=== PATIENT | male | born 1965 | race American Indian/Alaskan Native ===

== ENCOUNTER 2017-01-06 07:27 | Outpatient (CLI) | payer MEDICARE, MEDICAID ==
--- NOTE | 2017-01-07 09:38 | Fluoroscopy Report ---
Modified barium swallow: History: Dysphagia. Findings: There is no anatomic obstruction noted to the transit of thin and thick liquid and semisolid and solid food through cervical esophagus. There was penetration/aspiration noted. Additional information was provided by speech therapist. Impression: Findings as detailed above.
== END 2017-01-06 07:28 | disposition home or self-care (01) ==
LOC: PT 07:27
PROVIDERS: ATTEND Internal Medicine
DX: R13.12 Dysphagia, oropharyngeal phase (principal)
CPT/HCPCS: 74230; 92611; G8996; G8997

== ENCOUNTER 2017-09-20 21:48 | Emergency (ER) | payer MEDICARE ==
[2017-09-20] MEDS ORDERED: HALDOL ONE (22:10)
[2017-09-20] MEDS ORDERED: ATIVAN IV ONE (22:48)
[2017-09-20] MEDS ORDERED: BENADRYL IV ONE (22:56)
[2017-09-20 23:24] LABS: Basophils % (Auto) 0.3 % (0.0-1.8); Eosinophils # (Auto) 0.1 K/mm3 (0.0-0.4); Eosinophils % (Auto) 0.9 % (0.0-4.3); Hematocrit 37.1 % (35.5-45.6); Hemoglobin 12.2 gm/dl (11.8-15.2); Lymphocytes # (Auto) 0.7 K/mm3 (1.2-5.4); Lymphocytes % (Auto) 8.3 % (13.4-35.0); Mean Corpuscular HGB Conc 33 % (32-34); Mean Corpuscular Hemoglobin 32 pg (28-32); Mean Corpuscular Volume 98 fl (84-94); Monocytes # (Auto) 0.6 K/mm3 (0.0-0.8); Platelet Count 141 K/mm3 (140-440); Red Cell Distribution Width 12.7 % (13.2-15.2)
[2017-09-20] MEDS ORDERED: NACL 0.9% 500 ML 500 ML IV ONE (23:33)
[2017-09-20 23:45] LABS: BUN/Creatinine Ratio 17; Blood Urea Nitrogen 12 mg/dL (9-20); Calcium 8.9 mg/dL (8.4-10.2); Hemolysis Index 6
[2017-09-21] MEDS ORDERED: HALDOL IM ONE
--- NOTE | 2017-09-21 00:02 | Emergency Department Report ---
HPI - General Chief Complaint: Seizure Time Seen by Provider: 09/20/17 22:44 - HPI HPI: The patient is a 52-year-old male With a history of Parkinson disease, who presents for evaluation of tremor. Per his , the patient experienced an episode of severe tremor this evening, approximately 2-3 hours prior to arrival , constant, lasting for one to 2 hours. She denies of the patient exhibited any other symptoms. She shares that the patient has experienced many episodes of tremors in the past, and thinks that his Parkinson medications are not strong enough. She denies that the patient has experienced fever, head injury, seizure-like activity, change from baseline mental status, change in baseline activity, vomiting, diarrhea, rash. ED Past Medical Hx - Past Medical History Previous Medical History?: Yes Hx Congestive Heart Failure: No Hx Diabetes: No Hx Asthma: No Hx COPD: No Additional medical history: heart murmur, parkinsons - Surgical History Past Surgical History?: No - Social History Smoking Status: Never Smoker Substance Use Type: None - Medications Home Medications: Home Medications Medication Instructions Recorded Confirmed Last Taken Type Carbidopa/Levodopa [Rytary ER 2 each PO Q3HR 02/19/17 02/19/17 02/17/17 History 23.75 mg-95 mg Cap] 25-250mg clonazePAM [Klonopin] 1 mg PO QDAY 02/19/17 02/19/17 02/17/17 History Benztropine [Cogentin] 1 mg PO BID #30 tab 09/21/17 Unknown Rx ED Review of Systems ROS: Stated complaint: MUSCLE PAIN Other details as noted in HPI Comment: Unobtainable due to pts medical conditions (non-communicative) Physical Exam - Physical Exam Vital Signs: Vital Signs 09/20/17 09/20/17 09/20/17 22:22 22:29 22:31 Temperature 98.6 F Pulse Rate 120 H 97 H Respiratory 12 20 16 Rate Blood Pressure 124/94 O2 Sat by Pulse 96 99 96 Oximetry 09/20/17 09/20/17 09/20/17 22:45 23:00 23:15 Temperature Pulse Rate 84 90 89 Respiratory 12 18 12 Rate Blood Pressure 90/52 99/53 98/53 O2 Sat by Pulse 95 96 97 Oximetry 09/20/17 09/20/17 23:30 23:45 Temperature Pulse Rate 83 80 Respiratory 14 12 Rate Blood Pressure 94/55 98/56 O2 Sat by Pulse 96 98 Oximetry Physical Exam: General: well-nourished, well-developed, no acute distress Head: Normocephalic, atraumatic Eyes: normal sclera ENT: Mucous membranes are pale and dry Neck: trachea midline, neck supple, No neck stiffness, no cervical adenopathy Respiratory: Breath sounds equal bilaterally, no wheezing, rales, or rhonchi Cardio: S1 and S2 present, no murmurs, rubs, gallops, capillary refill is delayed Abdomen: Normoactive bowel sounds, soft abdomen, no rigidity, no guarding or rebound tenderness Musc: No pitting edema Skin: No rash Neuro: Alert, drowsy, intention tremor of the right hand present, no resting tremor, reflexes 2+ symmetric on DTR testing of the measures was bilaterally, Babinski is downgoing Psych: Normal affect ED Course Vital Signs 09/20/17 09/20/17 09/20/17 22:22 22:29 22:31 Temperature 98.6 F Pulse Rate 120 H 97 H Respiratory 12 20 16 Rate Blood Pressure 124/94 O2 Sat by Pulse 96 99 96 Oximetry 09/20/17 09/20/17 09/20/17 22:45 23:00 23:15 Temperature Pulse Rate 84 90 89 Respiratory 12 18 12 Rate Blood Pressure 90/52 99/53 98/53 O2 Sat by Pulse 95 96 97 Oximetry 09/20/17 09/20/17 23:30 23:45 Temperature Pulse Rate 83 80 Respiratory 14 12 Rate Blood Pressure 94/55 98/56 O2 Sat by Pulse 96 98 Oximetry ED Medical Decision Making - Lab Data Result diagrams: 09/20/17 23:02 09/20/17 23:02 - Medical Decision Making The patient was seen and examined by myself. The patient is placed on a manager monitoring and continuous pulse ox. On initial evaluation, the patient was found to be in no distress. Evaluation orders were placed. No signs of seizure. Patient exhibits transient tremor of the right arm for seconds. The patient is given IV Benadryl for his tremor like activity. The patient is given normal saline fluid bolus for treatment of his dehydration. Lab results are unremarkable. The patient was monitored in the emergency department for greater than 2 hours without any further tremor like activity. As the patient' s presenting complaint of tremor is chronic for the patient, and as the patient has normal vital signs, the patient is stable for discharge with outpatient follow-up. The patient is given follow-up and return instructions. The patient expressed understanding and agreed with the plan. The patient is discharged in stable condition. Critical care attestation.: If time is entered above; I have spent that time in minutes in the direct care of this critically ill patient, excluding procedure time. ED Disposition Clinical Impression: Tremor due to disorder of HAND [employer], Dehydration Parkinsonism Qualifiers: Parkinsonism type: Parkinson's disease Qualified Code(s): G20 - Parkinson's disease Disposition: - TO HOME OR SELFCARE Is pt being admited?: No Does the pt Need Aspirin: No Condition: Stable Instructions: Parkinson's Disease (ED) Prescriptions: Benztropine [Cogentin] 1 mg PO BID #30 tab Referrals: MISTY DOUGLASS MD [Referring] - 3-5 Days EBENEZER NIETO MD [Staff Physician] - 3-5 Days Time of Disposition: 00:05
[2017-09-21 02:14] VITALS: BP 122/78
== END 2017-09-21 02:15 | disposition home or self-care (01) ==
LOC: ED 21:48
DX: R25.1 Tremor, unspecified (principal); E86.0 Dehydration; G20 Parkinson's disease
CPT/HCPCS: 36415; 80048; 85025; 96372; 96374; 99284; J1200; J1630; J7040

== ENCOUNTER 2017-12-06 13:08 | Emergency (ER) | payer MEDICARE ==
[2017-12-06 13:55] LABS: Hematocrit 39.4 % (35.5-45.6); Hemoglobin 13.4 gm/dl (11.8-15.2); Mean Corpuscular HGB Conc 34 % (32-34); Mean Corpuscular Hemoglobin 33 pg (28-32); Mean Corpuscular Volume 97 fl (84-94); Platelet Count 200 K/mm3 (140-440); Red Blood Count 4.04 M/mm3 (3.65-5.03); Red Cell Distribution Width 12.4 % (13.2-15.2)
[2017-12-06 14:15] LABS: BUN/Creatinine Ratio 16; Blood Urea Nitrogen 11 mg/dL (9-20); Calcium 9.2 mg/dL (8.4-10.2); Hemolysis Index 10
--- NOTE | 2017-12-06 14:31 | XRay Report ---
ROUTINE CHEST, TWO VIEWS: HISTORY: Productive cough, fever. The trachea, heart, mediastinal contour, lung petty and bony thorax are unremarkable. IMPRESSION: Unremarkable chest x-ray.
--- NOTE | 2017-12-06 14:32 | XRay Report ---
RIGHT WRIST, 2 VIEWS History: Pain, swelling Findings: Mild soft tissue swelling is noted. Borderline to mild osteopenia is suspected. No acute osseous injury or joint pathology is appreciated. Impression: Soft tissue swelling. No acute bony injury is appreciated.
[2017-12-06 18:43] LABS: Bilirubin,Urine NEG (Negative); Blood,Urine SM (Negative); Color,Urine Yellow (Yellow); Mucus,Urine FEW /HPF; Protein,Urine <15 mg/dL mg/dL (Negative); WBC,Urine < 1.0 /HPF (0.0-6.0)
[2017-12-06 21:08] VITALS: BP 128/88
--- NOTE | 2017-12-06 21:48 | Emergency Department Report ---
HPI - General Chief Complaint: Upper Respiratory Infection Time Seen by Provider: 12/06/17 21:30 - HPI HPI: Room 30 The patient is a 52-year-old male presenting with a chief complaint of chest pain. Family states patient is complaining of constant chest tightness for the past 3 days. Patient denies shortness of breath, nausea/vomiting but admits to diaphoresis. Patient has been afebrile. Family states patient has had a nonproductive cough for one week. The patient also been complaining of right wrist pain for one week. Family states the patient's tremors from his Parkinson 's causes him to shake his right hand at times and family is uncertain if he may have injured his wrist during these tremors. The patient currently denies chest pain. Family is uncertain patient is a stress test but states that he has never had a cardiac catheterization Location: [See above] Duration: [See above] Quality: Tightness Severity: Currently 0/10 Modifying factors: [see above] Context: [see above] Mode of transportation: [not driving] ED Past Medical Hx - Past Medical History Additional medical history: heart murmur, parkinsons - Surgical History Past Surgical History?: No - Family History Family history: no significant - Social History Smoking Status: Never Smoker Substance Use Type: None - Medications Home Medications: Home Medications Medication Instructions Recorded Confirmed Last Taken Type Carbidopa/Levodopa [Rytary ER 1 each PO TID 02/19/17 12/06/17 02/17/17 History 23.75 mg-95 mg Cap] 25-250mg guaiFENesin [Guaifenesin] 200 mg PO TID #200 liquid 12/06/17 Unknown Rx ED Review of Systems ROS: Stated complaint: CHEST PAIN Other details as noted in HPI Constitutional: diaphoresis Eyes: denies: eye pain ENT: denies: throat pain Respiratory: denies: shortness of breath Cardiovascular: chest pain Endocrine: no symptoms reported Gastrointestinal: denies: nausea, vomiting Genitourinary: denies: dysuria Musculoskeletal: arthralgia, myalgia Neurological: denies: headache Physical Exam - Physical Exam Vital Signs: Vital Signs 12/06/17 12/06/17 12/06/17 13:36 20:17 21:07 Temperature 99 F 97.9 F 98.8 F Pulse Rate 103 H 92 H 91 H Respiratory 18 18 18 Rate Blood Pressure 136/87 Blood Pressure 128/88 [Left] Blood Pressure 126/77 [Right] O2 Sat by Pulse 98 100 99 Oximetry Physical Exam: GENERAL: The patient is well-developed well-nourished male lying on stretcher not appearing to be in acute distress. [] HEENT: Normocephalic. Atraumatic. Extraocular motions are intact. Patient has moist mucous membranes. NECK: Supple. Trachea midline CHEST/LUNGS: Clear to auscultation. There is no respiratory distress noted. HEART/CARDIOVASCULAR: Regular. There is no tachycardia. There is no gallop rub or murmur. ABDOMEN: Abdomen is soft, nontender. Patient has normal bowel sounds. There is no abdominal distention. SKIN: There is no rash. There is no edema. There is no diaphoresis. NEURO: The patient is awake, alert, and oriented. The patient is cooperative. MUSCULOSKELETAL: There is soreness to the right wrist but no obvious deformity. There is no evidence of acute injury. ED Course Vital Signs 12/06/17 12/06/17 12/06/17 13:36 20:17 21:07 Temperature 99 F 97.9 F 98.8 F Pulse Rate 103 H 92 H 91 H Respiratory 18 18 18 Rate Blood Pressure 136/87 Blood Pressure 128/88 [Left] Blood Pressure 126/77 [Right] O2 Sat by Pulse 98 100 99 Oximetry ED Medical Decision Making - Lab Data Result diagrams: 12/06/17 13:41 12/06/17 13:37 Laboratory Tests 12/06/17 12/06/17 12/06/17 13:37 13:41 17:56 WBC 4.1 L RBC 4.04 Hgb 13.4 Hct 39.4 MCV 97 H MCH 33 H MCHC 34 RDW 12.4 L Plt Count 200 Sodium 138 Potassium 3.8 Chloride 99.1 Carbon Dioxide 24 Anion Gap 19 BUN 11 Creatinine 0.7 L Estimated GFR > 60 BUN/Creatinine Ratio 16 Glucose 111 H Calcium 9.2 Troponin T < 0.010 Urine Color Yellow Urine Turbidity Clear Urine pH 6.0 Ur Specific [place] 1.017 Urine Protein <15 mg/dl Urine Glucose (UA) Neg Urine Ketones Tr Urine Blood Sm Urine Nitrite Neg Urine Bilirubin Neg Urine Urobilinogen 2.0 Ur Leukocyte Esterase Neg Urine WBC (Auto) < 1.0 Urine RBC (Auto) 3.0 Urine Mucus Few - EKG Data -: EKG Interpreted by Me EKG shows normal: sinus rhythm Rate: normal - EKG Data When compared to previous EKG there are: previous EKG unavailable Interpretation: nonspecific ST-T wave jasbir (T-wave inversion in lead aVL, V2) - Radiology Data Radiology results: report reviewed (chest x-ray, right wrist x-ray), image reviewed (chest x-ray, right wrist x-ray) interpreted by me: Chest x-ray-no definite focal infiltrates, no pneumothorax Right wrist x-ray-no acute fracture seen [address] [address] XRay Report Signed Patient: PATTI COOPER JR MR#: [id number] : 1965 Acct:[id number] Age/Sex: 52 / M ADM Date: 12/06/17 Loc: ED Attending Dr: Ordering Physician: ANUP RIOS MD Date of Service: 12/06/17 Procedure(s): XR chest routine 2V Accession Number(s): [id number] cc: ANUP RIOS MD Fluoro Time In Minutes: ROUTINE CHEST, TWO VIEWS: HISTORY: Productive cough, fever. The trachea, heart, mediastinal contour, lung petty and bony thorax are unremarkable. IMPRESSION: Unremarkable chest x-ray. Transcribed By: TTR Dictated By: TYLER MOSCOSO JR, MD Electronically Authenticated By: TYLER MOSCOSO JR, MD Signed Date/Time: 12/06/17 1430 DD/ 1430 TD/TT: 12/06/[address] [address] XRay Report Signed Patient: PATTI COOPER JR MR#: [id number] : 1965 Acct:[id number] Age/Sex: 52 / M ADM Date: 12/06/17 Loc: ED Attending Dr: Ordering Physician: ANUP RIOS MD Date of Service: 12/06/17 Procedure(s): XR wrist 2V RT Accession Number(s): [id number] cc: ANUP RIOS MD Fluoro Time In Minutes: RIGHT WRIST, 2 VIEWS History: Pain, swelling Findings: Mild soft tissue swelling is noted. Borderline to mild osteopenia is suspected. No acute osseous injury or joint pathology is appreciated. Impression: Soft tissue swelling. No acute bony injury is appreciated. Transcribed By: TTR Dictated By: TYLER MOSCOSO JR, MD Electronically Authenticated By: TYLER MOSCOSO JR, MD Signed Date/Time: 12/06/171430 DD/ 30 TD/TT: 12/06/171430 - Medical Decision Making I discussed with the patient and spouse at length my concern for the patient's chest pain. I explained our recommended the patient be admitted to the hospital as ACS could not be excluded. Family verbalized understanding of increased morbidity and/or mortality but still wishes to leave the hospital AGAINST MEDICAL ADVICE. - Differential Diagnosis ACS, pericarditis, GERD, bronchitis, wrist fracture Critical care attestation.: If time is entered above; I have spent that time in minutes in the direct care of this critically ill patient, excluding procedure time. ED Disposition Clinical Impression: Chest pain, Left wrist pain Disposition: LEFT AGAINST MED ADVICE Is pt being admited?: No Does the pt Need Aspirin: No Condition: Undetermined Instructions: Chest Pain (ED) Prescriptions: guaiFENesin [Guaifenesin] 200 mg PO TID #200 liquid Referrals: EBENEZER KELLY MD [Primary Care Provider] - 3-5 Days Time of Disposition: 21:52
== END 2017-12-06 21:55 | disposition left against medical advice (07) ==
LOC: ED 13:08
DX: R07.89 Other chest pain (principal); M25.531 Pain in right wrist
CPT/HCPCS: 36415; 71046; 80048; 81001; 84484; 85027; 93005; 93010

== ENCOUNTER 2018-01-19 14:55 | Outpatient (CLI) | payer MEDICARE ==
--- NOTE | 2018-02-02 09:06 | Magnetic Resonance Report ---
MR scan of the cranium was performed without contrast. Pulse sequences included: 1. T1 weighted sagittal and axial images without contrast 2. T2 weighted axial and coronal images 3. FLAIR axial images 4. Diffusion-weighted axial images 5. Apparent diffusion coefficient images Views of the posterior fossa showed a normal craniocervical junction. Cerebellar pontine angles were normal with normal seventh-eighth nerve complexes. Brainstem and cerebellum were normal. The ventricular system showed no dilatation or distortion. Images of the hemispheres showed no areas of increased or decreased signal. Flow voids in the lime of [place], orbits, pituitary and basal ganglia were normal. Air fluid levels were seen in the sphenoid sinuses suggestive of sinusitis. Increased signal was also seen in the left mastoid sinus. Impression: Normal MR scan of the cranium without contrast except for sinusitis involving the left mastoid and both sphenoid sinuses.
== END 2018-01-19 14:56 | disposition home or self-care (01) ==
LOC: MRI 14:55
PROVIDERS: ATTEND Specialist
DX: J32.3 Chronic sphenoidal sinusitis (principal)
CPT/HCPCS: 70551